=== PATIENT | male | born 1930 | race Caucasian/White ===

== ENCOUNTER 2016-11-20 20:44 | Emergency (ER) | payer MEDICARE, OTHER ==
[2016-11-28] MEDS ORDERED: COREG12.5 MG PO (09:48)
[2016-11-28] MEDS ORDERED: FLOMAX0.4 MG PO (09:48)
[2016-11-28] MEDS ORDERED: HUMULIN R100 UNIT/1 SQ (09:48)
[2016-11-28] MEDS ORDERED: ASPIR 8181 MG PO (09:49)
[2016-11-28] MEDS ORDERED: NORCO 5-325 TA1 EACH PO (09:49)
[2016-11-28] MEDS ORDERED: PROSCAR5 MG PO (09:49)
[2016-11-28] MEDS ORDERED: VITAMIN D31000 UNI1 PO (09:49)
[2016-11-28] MEDS ORDERED: FERROUS SULFAT325 MG PO (09:50)
[2016-11-28] MEDS ORDERED: NEURONTIN600 MG PO (09:50)
[2016-11-28] MEDS ORDERED: ALPHAGAN P5 ML OU (09:50)
[2016-11-28] MEDS ORDERED: PLENDIL5 MG PO (09:50)
[2016-11-28] MEDS ORDERED: PRINIVIL5 MG PO (09:51)
[2016-11-28] MEDS ORDERED: SYNTHROID150 MCG PO (09:51)
[2016-11-28] MEDS ORDERED: XALATAN2.5 ML OD (09:51)
[2016-11-28] MEDS ORDERED: NASONEX17 GM NS (09:52)
[2016-11-28] MEDS ORDERED: POLYETHYLENE GL17 GM PO (09:52)
[2016-11-28] MEDS ORDERED: DAILY VITE1 EACH PO (09:52)
[2016-11-28] MEDS ORDERED: PRAVACHOL40 MG PO (09:53)
[2016-11-28] MEDS ORDERED: VESICARE10 MG PO (09:53)
[2016-11-28] MEDS ORDERED: B-121000 MCG PO (09:53)
[2016-11-28] MEDS ORDERED: SENNA8.6 MG PO (09:54)
[2016-11-28] MEDS ORDERED: BISAC-EVAC10 MG RC (09:54)
[2016-11-28] MEDS ORDERED: HYDRALAZINE HC100 MG PO (09:54)
== END 2016-11-21 04:02 | disposition critical access hospital (66) ==
LOC: ER 20:44
DX: S72.002A Fracture of unspecified part of neck of left femur, initial encounter for closed fracture (principal); I12.9 Hypertensive chronic kidney disease with stage 1 through stage 4 chronic kidney disease, or unspecified chronic kidney disease; N18.9 Chronic kidney disease, unspecified; E11.22 Type 2 diabetes mellitus with diabetic chronic kidney disease; E87.5 Hyperkalemia; E03.9 Hypothyroidism, unspecified; I25.10 Atherosclerotic heart disease of native coronary artery without angina pectoris; Z95.1 Presence of aortocoronary bypass graft; Z88.8 Allergy status to other drugs, medicaments and biological substances; Z79.899 Other long term (current) drug therapy; W19.XXXA Unspecified fall, initial encounter
CPT/HCPCS: 36415; 51702; 73502-LT; 73552-LT; 96361; 96365; 96375; 96376; J0696; J2704

== ENCOUNTER 2016-11-20 20:44 | Inpatient (IN) | payer MEDICARE, OTHER ==
--- NOTE | 2016-11-21 13:29 | NUR ---
0950-MD HERE TO SEE AND ASSESS PT AT THIS TIME. UPDATED ON PT CONDITION AND CONFUSION NOTED. FAMILY STATES SLIGHT DISORIENTATION NOTED NORMALLY BUT MORE SO NOW. PT WITH POSSIBLE PNEUMONIA PER CXR RIGHT LUNG. CT SCAN OF HEAD NEGATIVE. ELEVATED K+ WITH KAEXOLATE GIVEN THIS AM. DR. STARKS TO CONSULT FOR LEFT HIP REPAIR. FAMILY AT [facility]. N/O'S NOTED. 3768-DR. MCKEON HAS BEEN UPDATED ON PT CONDITION. PT TO HAVE ECHO TODAY FOR PRE-OP. PT NOT CLEAR FOR SURGERY AT THIS TIME. DR. STARKS NOTIFIED.
--- NOTE | 2016-11-21 18:59 | NUR ---
1830-DR. STARKS HERE TO SEE AND ASSESS PT. UPDATED ON CONDITIN. PLANS FOR OR TOMORROW EVENING.
--- NOTE | 2016-11-22 21:24 | NUR ---
2009 TO SURGERY VIA PTS BED FOR ORIF OF HIP.
--- NOTE | 2016-11-23 02:07 | NUR ---
2340 11-22-2016 PT BROUGHT TO ROOM 200-1 WITH OR NURSE AND ANESTHESIOLOGIST FOR RECOVERY. V.S. STABLE AND PT EASILY AWAKENED. NO PROBLEMS NOTED AT THIS TIME.
--- NOTE | 2016-11-25 09:48 | NUR ---
0930-DR. LIVINGSTON HERE TO SEE AND ASSESS PT AT THIS TIME. UPDATED ON PT CONDITION THIS AM AND M.6. N/O'S NOTED
--- NOTE | 2016-11-25 16:23 | NUR ---
1625-PT TO BE TRANSFERRED TO [facility] ROOM 305. REPORT GIVEN TO Monica ROMERO RN AT THIS TIME.
--- NOTE | 2016-11-25 16:55 | NUR ---
1630-PT TRANSFERRED TO ROOM 305 VIA BED AND STAFF AT THIS TIME
--- NOTE | 2016-11-25 16:55 | NUR ---
1223-NOTIFIED MD OF DAUGHTER CONCERN OVER PT CONTINUED AMS. STATES NOT COMMUNICATING QUITE LIKE BEFORE FALL. NURSING DISCUSSED PRIOR NEUROLOGICAL AND ORIENTATION PRIOR TO FALL AND DAUGHTER STATES RAPID DECLINE SINCE TRANSVERSE MYELITIS THIS PAST YEAR. SEEMS WORSE AFTER FALL. N/O'S FOR REPEAT CT HEAD WITHOUT CONTRAST TO EVALUATE FOR CHANGES. Monica ROMERO RN ON [facility] NOTIFIED
--- NOTE | 2016-11-25 17:32 | NUR ---
1625 REPORT RECEIVED FROM MIRANDA ARBOLEDA ICU FOR PATIENT TO TRANSFER TO FLOOR ROOM 305 VIA HOSPITAL BED. 1630 PATIENT HERE TO ROOM 305 VIA HOSPITAL BED. DAUGHTER AT BEDSIDE. PATIENT ALERT TO SELF ONLY. PATIENT ANSWERS SOME QUESTIONS APPROPRIATELY, FORGETS EASILY. PATIENT BANDAGE TO LEFT HIP CDI. PATIENT HAS CLEAR YELLOW URINE IN ESCOBAR CATHETER. PATIENT ON ROOM AIR O2. PATIENT DENIES PAIN AT THIS TIME. PATIENT HAS SCABBED ABRASION RO LEFT SIDE OF FOREHEAD WITH ECCHYMOSIS NOTED. (DAUGHTER REPORTS FROM FALL PRIOR TO ADMIT) PATIENT HAS 2+ PULSES TO BILATERAL LOWER EXT. PATIENT CAN WIGGLE TOES. PATIENT HAS PNEUMATIC COMPRESSION DEVICE TO RLE.
[2016-11-28] MEDS ORDERED: COREG12.5 MG PO (09:48)
[2016-11-28] MEDS ORDERED: FLOMAX0.4 MG PO (09:48)
[2016-11-28] MEDS ORDERED: HUMULIN R100 UNIT/1 SQ (09:48)
[2016-11-28] MEDS ORDERED: ASPIR 8181 MG PO (09:49)
[2016-11-28] MEDS ORDERED: NORCO 5-325 TA1 EACH PO (09:49)
[2016-11-28] MEDS ORDERED: PROSCAR5 MG PO (09:49)
[2016-11-28] MEDS ORDERED: VITAMIN D31000 UNI1 PO (09:49)
[2016-11-28] MEDS ORDERED: NEURONTIN600 MG PO (09:50)
[2016-11-28] MEDS ORDERED: FERROUS SULFAT325 MG PO (09:50)
[2016-11-28] MEDS ORDERED: ALPHAGAN P5 ML OU (09:50)
[2016-11-28] MEDS ORDERED: PLENDIL5 MG PO (09:50)
[2016-11-28] MEDS ORDERED: PRINIVIL5 MG PO (09:51)
[2016-11-28] MEDS ORDERED: SYNTHROID150 MCG PO (09:51)
[2016-11-28] MEDS ORDERED: XALATAN2.5 ML OD (09:51)
[2016-11-28] MEDS ORDERED: DAILY VITE1 EACH PO (09:52)
[2016-11-28] MEDS ORDERED: NASONEX17 GM NS (09:52)
[2016-11-28] MEDS ORDERED: POLYETHYLENE GL17 GM PO (09:52)
[2016-11-28] MEDS ORDERED: VESICARE10 MG PO (09:53)
[2016-11-28] MEDS ORDERED: B-121000 MCG PO (09:53)
[2016-11-28] MEDS ORDERED: PRAVACHOL40 MG PO (09:53)
[2016-11-28] MEDS ORDERED: BISAC-EVAC10 MG RC (09:54)
[2016-11-28] MEDS ORDERED: HYDRALAZINE HC100 MG PO (09:54)
[2016-11-28] MEDS ORDERED: SENNA8.6 MG PO (09:54)
== END 2016-11-27 15:39 | DRG 481 ==
LOC: ER 20:44 → ICU 11-21 04:03 → MED 11-25 16:30
PROVIDERS: ADMIT Internal Medicine
PROC: 0QS706Z Reposition Left Upper Femur with Intramedullary Internal Fixation Device, Open Approach (ICD-10-PCS; principal; 2016-11-22)
PROC: 30233N1 Transfusion of Nonautologous Red Blood Cells into Peripheral Vein, Percutaneous Approach (ICD-10-PCS; 2016-11-24)
DX: S72.142A Displaced intertrochanteric fracture of left femur, initial encounter for closed fracture (principal); D62 Acute posthemorrhagic anemia; N17.9 Acute kidney failure, unspecified; E87.0 Hyperosmolality and hypernatremia; W18.30XA Fall on same level, unspecified, initial encounter; Y92.129 Unspecified place in nursing home as the place of occurrence of the external cause; E11.40 Type 2 diabetes mellitus with diabetic neuropathy, unspecified; E83.42 Hypomagnesemia; I73.9 Peripheral vascular disease, unspecified; G47.33 Obstructive sleep apnea (adult) (pediatric); N40.0 Benign prostatic hyperplasia without lower urinary tract symptoms; E87.6 Hypokalemia; T37.0X5A Adverse effect of sulfonamides, initial encounter; I25.10 Atherosclerotic heart disease of native coronary artery without angina pectoris; Z95.1 Presence of aortocoronary bypass graft; E78.5 Hyperlipidemia, unspecified; E03.9 Hypothyroidism, unspecified; I69.320 Aphasia following cerebral infarction; H40.9 Unspecified glaucoma; Z90.49 Acquired absence of other specified parts of digestive tract; Z87.891 Personal history of nicotine dependence; Z88.8 Allergy status to other drugs, medicaments and biological substances; Z79.02 Long term (current) use of antithrombotics/antiplatelets; Z79.82 Long term (current) use of aspirin; Z79.4 Long term (current) use of insulin; Z79.899 Other long term (current) drug therapy; Z82.3 Family history of stroke; Z82.49 Family history of ischemic heart disease and other diseases of the circulatory system; E87.5 Hyperkalemia; I25.5 Ischemic cardiomyopathy; F03.90 Unspecified dementia, unspecified severity, without behavioral disturbance, psychotic disturbance, mood disturbance, and anxiety; I12.9 Hypertensive chronic kidney disease with stage 1 through stage 4 chronic kidney disease, or unspecified chronic kidney disease; E11.22 Type 2 diabetes mellitus with diabetic chronic kidney disease; N18.9 Chronic kidney disease, unspecified; Z96.652 Presence of left artificial knee joint
CPT/HCPCS: 36415; 73502-LT; 73552-LT; 92610; 93306; 97162-GP; 97166; C1713; J0696; J1644; J1650; J2060; J2704; J2765; J7070; P9021